=== PATIENT | female | born 1950 ===

== ENCOUNTER 2017-03-04 09:17 | Emergency (ER) | payer OTHER ==
[~2017-03-04] VITALS: Ht 167.6 cm; Wt 63.5 kg
[2017-03-04] MEDS ORDERED: VERAPAMIL HCL40 MG PO (09:36)
[2017-03-04] MEDS ORDERED: ATORVASTATIN CA10 MG PO (09:36)
== END 2017-03-04 16:15 | disposition home or self-care (01) ==
LOC: ER 09:17
DX: J06.9 Acute upper respiratory infection, unspecified (principal)

== ENCOUNTER 2018-04-13 11:23 | Outpatient (CLI) | payer OTHER ==
[~2018-04-13 11:23] MED LIST: ATORVASTATIN CA10 MG PO; VERAPAMIL HCL40 MG PO
== END 2018-04-13 11:26 | disposition home or self-care (01) ==
LOC: MAMO-SONO 11:23
DX: Z12.31 Encounter for screening mammogram for malignant neoplasm of breast (principal); Z87.898 Personal history of other specified conditions; N60.11 Diffuse cystic mastopathy of right breast; N60.12 Diffuse cystic mastopathy of left breast